=== PATIENT | male | born 1950 | race Caucasian/White ===

== ENCOUNTER 2022-03-03 18:10 | Emergency (ER) | payer OTHER, BC ==
[2022-03-03] MEDS ORDERED: Sodium Chloride 0.9% 1,000 ML IV ONE (18:11)
[2022-03-03] MEDS ORDERED: Ondansetron 4 MG in Sodium Chloride 0.9% 100 ML IV ONE (18:30)
[2022-03-03] MEDS ORDERED: Ondansetron 4 MG/2 ML SDV ONE (18:35)
[2022-03-03 18:54] LABS: CHLORIDE,CL 98 mmol/L (98-107); SODIUM,NA 134 mmol/L (136-145)
[2022-03-03 18:56] LABS: ANION GAP 15.1 mmol/L (5-15); ESTIMATED GFR 93 mL/min (>=60)
[2022-03-03] MEDS ORDERED: fentaNYL 50 MCG/ML SDV IVPUSH ONE ×2 (19:17→19:25)
== END 2022-03-03 19:50 | disposition short-term general hospital (02) ==
LOC: VM.ED 18:10
DX: S22.42XA Multiple fractures of ribs, left side, initial encounter for closed fracture (principal); S27.321A Contusion of lung, unilateral, initial encounter; S40.012A Contusion of left shoulder, initial encounter; S80.212A Abrasion, left knee, initial encounter; S80.211A Abrasion, right knee, initial encounter; S00.31XA Abrasion of nose, initial encounter; S00.511A Abrasion of lip, initial encounter; V29.9XXA Motorcycle rider (driver) (passenger) injured in unspecified traffic accident, initial encounter
CPT/HCPCS: 36415; 70450; 71045; 71250; 72125; 72192; 73020-LT; 74176; 80053; 82550; 83605; 85018; 85025; 96374; 96375; 99285-25; J2405; J3010; J7030